=== PATIENT | female | born 1995 | race Caucasian/White ===

== ENCOUNTER 2020-01-25 09:52 | Emergency (ER) | payer BC, OTHER ==
[2020-01-25 10:02] VITALS: BP 127/64; PULSE 88
--- NOTE | 2020-01-25 11:20 | CR ---
Chest: Portable view of the chest was obtained. Comparison: No prior chest imaging is available. Heart size and mediastinum are normal. Lungs are clear with no acute parenchymal change. Bony structures are grossly intact. Impression: 1. Nothing acute is identified on portable chest x-ray. Diagnostic code #1 This report was dictated in MDT
--- NOTE | 2020-01-25 12:31 | EDM.PDOC ---
ED HPI GENERAL MEDICAL PROBLEM - General Chief Complaint: Respiratory Problem Stated Complaint: SOB/COUGH/FEVER/CHEST TIGHTNESS...TESTED [id number] Time Seen by Provider: 01/25/20 11:09 Source of Information: Reports: Patient, RN Notes Reviewed History Limitations: Reports: No Limitations - History of Present Illness INITIAL COMMENTS - FREE TEXT/NARRATIVE: She is a 24-year-old female who presents to the ED for ongoing worsening respiratory symptoms. The patient states that she was tested for COVID-19 on Sunday at the [facility], but states they only swabbed 1 nare, and she thinks they did not test her correctly. She was informed that the coronavirus testing was negative on Sunday the patient is complaining of shortness of breath , cough, fever, chest tightness. She states that the fevers have been around 99.4 F, they have been as bad as 102.4 F. Patient notes that Tylenol does seem to help the symptoms. The patient states that she went to the walk-in clinic today, but was sent here for worsening symptoms. The patient notes that she does work at [employer] and was worried about returning to work. Chest Pain Score (Numeric/FACES): 6 - Related Data Allergies Allergy/AdvReac Type Severity Reaction Status Date / Time No Known Allergies Allergy Verified 03/01/16 23:30 Home Meds: Home Meds Fluconazole [Diflucan] 150 mg PO ONETIME #1 tablet 03/02/16 [Rx] Triamcinolone Acetonide [Triamcinolone Acetonide 0.1% Crm] 15 gm TOP BID #1 tube 03/02/16 [Rx] Past Medical History - Past Health History Medical/Surgical History: Denies Medical/Surgical History - Infectious Disease History Infectious Disease History: Reports: Influenza, Mononucleosis Social & Family History - Family History Family Medical History: Noncontributory - Tobacco Use Smoking Status *Q: Never Smoker Second Hand Smoke Exposure: No ED ROS GENERAL - Review of Systems Review Of Systems: Comprehensive ROS is negative, except as noted in HPI. ED EXAM, GENERAL - Physical Exam Exam: See Below Exam Limited By: No Limitations General Appearance: Alert, WD/WN, No Apparent Distress Eye Exam: Bilateral Eye: EOMI, Normal Inspection, PERRL Ears: Normal External Exam Nose: Normal Inspection Throat/Mouth: Normal Inspection, Normal Lips, Normal Teeth, Normal Gums, Normal Oropharynx, Normal Voice, No Airway Compromise Head: Atraumatic, Normocephalic Neck: Normal Inspection Respiratory/Chest: No Respiratory Distress, Lungs Clear, Normal Breath Sounds, No Accessory Muscle Use, Chest Non-Tender Cardiovascular: Normal Peripheral Pulses, Regular Rate, Rhythm, No Murmur GI/Abdominal: Normal Bowel Sounds, Soft, Non-Tender, No Distention, No Mass Extremities: Normal Inspection, Normal Capillary Refill Neurological: Alert, Oriented, Normal Cognition, No Motor/Sensory Deficits Psychiatric: Normal Affect, Normal Mood Skin Exam: Warm, Dry, Intact, Normal Color, No Rash Course - Vital Signs Last Recorded V/S: Last Vital Signs Temp 98.8 F 01/25/20 09:59 Pulse 88 01/25/20 09:59 Resp 16 01/25/20 09:59 BP 127/64 01/25/20 09:59 Pulse Ox 98 01/25/20 09:59 - Orders/Labs/Meds Orders: Active Orders 24 hr Category Date Time Status Isolation [COMM] Routine Oth 01/25/20 10:17 Ordered - Re-Assessments/Exams Free Text/Narrative Re-Assessment/Exam: 01/25/20 12:31 Patient presents to the ED for ongoing respiratory symptoms. I am fairly suspicious that they did not test her correctly due to her recount of the testing. Nonetheless the patient is experiencing symptoms of coronavirus, at this time she will be clinically diagnosed with coronavirus. She will be given general recommendations and sent home for self quarantine. She states that her boyfriend does live with her, and I recommended that he self quarantine as well and stay home from work. Departure - Departure Time of Disposition: 12:31 Disposition: Home, Self-Care 01 Condition: Fair Clinical Impression: Suspected 2019 novel coronavirus infection - Discharge Information *PRESCRIPTION DRUG MONITORING PROGRAM REVIEWED*: No *COPY OF PRESCRIPTION DRUG MONITORING REPORT IN PATIENT IMANI: No Instructions: Novel Coronavirus Infection Referrals: PCP,None [Primary Care Provider] - Forms: ED Department Discharge, ED Return to Work/School Form Additional Instructions: You were seen in the ER today for ongoing worsening respiratory symptoms. Your chest x-ray showed no signs of pneumonia at this time. Your oxygen levels were great at 98 to 100% on room air. At this time we did not retest you for coronavirus however your symptoms are very suspicious for an ongoing infection. At this time you have been clinically diagnosed with coronavirus. It is recommended at this time that you go home and self quarantine, you have been given a handout from the [facility] on what would be a good time to try to return to work. Please try to increase your oral fluid intake, and eat multiple small meals throughout the day, to keep yourself healthy. You may take 500 mg Tylenol or 600 mg ibuprofen every hours 6 hours for pain/ fever relief. Do not exceed 4000 mg Tylenol or 3200 mg ibuprofen in a 24-hour time span. Sepsis Event Note - Evaluation Sepsis Screening Result: No Definite Risk - Focused Exam Vital Signs: Vital Signs Temp Pulse Resp BP Pulse Ox 01/25/20 09:59 98.8 F 88 16 127/64 98 Date Exam was Performed: 01/25/20 Time Exam was Performed: 12:40
== END 2020-01-25 13:10 | disposition home or self-care (01) ==
LOC: JD.ED 09:52
DX: B97.29 Other coronavirus as the cause of diseases classified elsewhere (principal)
CPT/HCPCS: 71045; 71045-26; 87804; 99282; 99285-25